=== PATIENT | male | born 1960 | race American Indian/Alaskan Native ===

== ENCOUNTER 2018-03-21 20:20 | Emergency (ER) | payer OTHER ==
[2018-03-21 20:47] VITALS: BP 119/78
[2018-03-22] MEDS ORDERED: MOTRIN PO ONE (00:17)
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
== END 2018-03-22 00:35 | disposition home or self-care (01) ==
LOC: ED 20:20
DX: M54.5 Low back pain (principal); M62.830 Muscle spasm of back; R51 Headache; V79.9XXA Bus occupant (driver) (passenger) injured in unspecified traffic accident, initial encounter; Y93.89 Activity, other specified; Y99.0 Civilian activity done for income or pay; Y92.413 State road as the place of occurrence of the external cause
CPT/HCPCS: 99282

== ENCOUNTER 2018-04-09 18:19 | Emergency (ER) | payer SELFPAY ==
[2018-04-09 18:31] VITALS: BP 111/69
== END 2018-04-09 19:54 | disposition left against medical advice (07) ==
LOC: ED 18:19
DX: M54.9 Dorsalgia, unspecified (principal); Z53.21 Procedure and treatment not carried out due to patient leaving prior to being seen by health care provider

== ENCOUNTER 2021-08-01 12:34 | Emergency (ER) | payer BC, OTHER ==
[2021-08-01 12:47] VITALS: BP 96/67
--- NOTE | 2021-08-01 15:21 | Emergency Department Report ---
ED General Adult HPI - General Chief complaint: Extremity Problem,Nontraumatic Stated complaint: BOTH ANKLES SWOLLEN Time Seen by Provider: 08/01/21 14:29 Source: patient Mode of arrival: Ambulatory Limitations: No Limitations - History of Present Illness Initial comments: 61-year-old -[place] male with no reported past medical history no PCC PCP presents emerge department complaining of atraumatic bilateral lower extremity swelling involving his ankles of an unknown etiology states has been getting progressively worsening over the past 2 to 3 months reports no fever, chills, sweats no chest pain no calf pain Radiation: non-radiation Quality: aching, dull Consistency: constant Worsens with: none Associated Symptoms: denies other symptoms - Related Data Previous Rx's Medication Instructions Recorded Last Taken Type Naproxen [Naprosyn TAB] 500 mg PO BID #20 tablet 03/22/18 Unknown Rx methOCARBAMOL [Robaxin TAB] 500 mg PO BID #20 tab 03/22/18 Unknown Rx Compress.stocking,Knee,Reg,Lrg 1 each MC DAILY #1 each 08/01/21 Unknown Rx [Relief Knee Close Toe] Allergies Allergy/AdvReac Type Severity Reaction Status Date / Time No Known Allergies Allergy Unverified 03/22/18 00:17 ED Review of Systems ROS: Stated complaint: BOTH ANKLES SWOLLEN Other details as noted in HPI Comment: All other systems reviewed and negative ED Past Medical Hx - Past Medical History Previous Medical History?: No - Surgical History Past Surgical History?: No - Social History Smoking Status: Never Smoker Substance Use Type: None - Medications Home Medications: Home Medications Medication Instructions Recorded Confirmed Last Taken Type Naproxen [Naprosyn TAB] 500 mg PO BID #20 tablet 03/22/18 Unknown Rx methOCARBAMOL [Robaxin TAB] 500 mg PO BID #20 tab 03/22/18 Unknown Rx Compress.stocking,Knee,Reg,Lrg 1 each MC DAILY #1 each 08/01/21 Unknown Rx [Relief Knee Close Toe] ED Physical Exam - General Limitations: No Limitations General appearance: alert, in no apparent distress - Head Head exam: Present: atraumatic, normocephalic - Eye Eye exam: Present: normal appearance - ENT ENT exam: Present: mucous membranes moist - Neck Neck exam: Present: normal inspection - Respiratory Respiratory exam: Present: normal lung sounds bilaterally. Absent: respiratory distress - Cardiovascular Cardiovascular Exam: Present: regular rate, normal rhythm. Absent: systolic murmur, diastolic murmur, rubs, gallop - GI/Abdominal GI/Abdominal exam: Present: soft, normal bowel sounds - Rectal Rectal exam: Present: deferred - Extremities Exam Extremities exam: Present: normal inspection, pedal edema (Bilateral lower extremity swelling no Homans' sign no cord sign pulses are 2+ some stasis dermatitis is noted on the right leg no cellulitis no lymphangitis no lymphadenopathy) - Back Exam Back exam: Present: normal inspection - Neurological Exam Neurological exam: Present: alert, oriented X3 - Psychiatric Psychiatric exam: Present: normal affect, normal mood - Skin Skin exam: Present: warm, dry, intact, normal color. Absent: rash ED Course Vital Signs 08/01/21 12:45 Temperature 98.2 F Pulse Rate 80 Respiratory 18 Rate Blood Pressure 96/67 O2 Sat by Pulse 96 Oximetry ED Medical Decision Making - Medical Decision Making 7-year-old F [place]ic male with bilateral lower extremity edema and and likely some early evolving stasis dermatitis. Advised patient to follow-up with primary care provider for definitive treatment of this issue evaluation. And advised on compression stockings. Also advised him on stasis dermatitis and that if things continue he may develop pressure wounds which may require further treatment and evaluation. Present time alert and oriented x3 no acute distress. Critical care attestation.: If time is entered above; I have spent that time in minutes in the direct care of this critically ill patient, excluding procedure time. ED Disposition Clinical Impression: Bilateral lower extremity edema Disposition: 01 HOME / SELF CARE / HOMELESS Is pt being admited?: No Does the pt Need Aspirin: No Condition: Stable Instructions: Edema, Edema, [id number], Peripheral Edema Additional Instructions: You have been seen in the emergency department today for bilateral lower extremity edema. Your evaluation has shown no medicals conditions requiring emergent intervention at this time, however recommend that you follow-up with your primary care physician or the listed provider soon as possible for further testing as an outpatient. Please schedule an appointment for follow-up with your primary care physician as soon as possible. Return to emergency department if you expands worsening uncontrolled chest pain, shortness of breath, lightheadedness, feeling faint, nausea, vomiting or any other concerning symptoms. Prescriptions: Compress.stocking,Knee,Reg,Lrg [Relief Knee Close Toe] 1 each MC DAILY #1 each Referrals: ODEMUYIWA,ABDULFATAI O, MD [Staff Physician] - 3-5 Days PRIMARY [facility]ARE, [Primary Care Provider] - 3-5 Days
== END 2021-08-01 16:16 | disposition home or self-care (01) ==
LOC: ED 12:34
DX: R60.0 Localized edema (principal); Z79.899 Other long term (current) drug therapy
CPT/HCPCS: 99281